=== PATIENT | female | born 1990 | race Caucasian/White ===

== ENCOUNTER 2022-04-12 08:08 | Observation (INO) | payer MEDICAID ==
[~2022-04-12] VITALS: Ht 152.4 cm; Wt 104.3 kg
== END 2022-04-12 10:45 | disposition home or self-care (01) ==
LOC: 8 EST LDRP 08:08
PROVIDERS: ADMIT Obstetrics & Gynecology; ATTEND Obstetrics & Gynecology
DX: O26.893 Other specified pregnancy related conditions, third trimester (principal); R10.9 Unspecified abdominal pain; N89.8 Other specified noninflammatory disorders of vagina; O69.89X0 Labor and delivery complicated by other cord complications, not applicable or unspecified; Z3A.36 36 weeks gestation of pregnancy
CPT/HCPCS: 59025; 76815; 76818; G0378; 99281

== ENCOUNTER 2023-05-23 00:23 | Emergency (ER) | payer MEDICAID ==
[~2023-05-23] VITALS: Ht 152.4 cm; Wt 94.0 kg
[~2023-05-23 00:23] MED LIST: FERR-63 PO; IBUP-2030 PO; PNV1CAPS42 MT
[2023-05-23 00:43] VITALS: BP 133/53; O2SAT 98
[2023-05-23] MEDS ORDERED: IBUPROFEN 600MG TABLET PO NR (02:08)
[2023-05-23] MEDS ORDERED: NAPR-681 PO (02:22)
[2023-05-23] MEDS ORDERED: AMOX-494 MT (02:22)
[2023-05-23] MEDS ORDERED: CIPHCO LEFT EAR (02:22)
[2023-05-23] MEDS ORDERED: POLY10DR EACHEYE (02:22)
[2023-05-23 03:01] VITALS: PULSE 90; RESP 16; TEMP 97.9
== END 2023-05-23 03:06 | disposition home or self-care (01) ==
LOC: ER 00:23
DX: H73.012 Bullous myringitis, left ear (principal)
CPT/HCPCS: 81025; 99283